=== PATIENT | female | born 1995 | race Caucasian/White ===

== ENCOUNTER → 2020-10-06 08:25 | Outpatient (BNVA) | payer BC, SELFPAY | PROVIDERS: PCP Internal Medicine; Visit Provider Surgery ==

== ENCOUNTER 2020-10-11 08:12 | Outpatient (REF) | payer BC, SELFPAY ==
--- NOTE | ~2020-10-11 | XR_ITS ---
EXAMINATION: XR CHEST CLINICAL INFORMATION: Shortness of breath COMPARISON: None TECHNIQUE: 2 views of the chest were obtained. FINDINGS: No significant abnormality is noted involving the heart, lungs, mediastinum, bony thorax or soft tissues. XR/XR chest 2V IMPRESSION: Unremarkable chest exam
--- NOTE | 2020-10-11 08:21 | ECG_ITS ---
Test Reason : SOB Blood Pressure : / mmHG Vent. Rate : 063 BPM Atrial Rate : 063 BPM P-R Int : 150 ms QRS Dur : 092 ms QT Int : 456 ms P-R-T Axes : 018 040 037 degrees QTc Int : 466 ms Normal sinus rhythm Normal ECG No previous ECGs available Referred By: Chiquis Villa Electronically Signed By:DEEPTI THAYER MD
[2020-10-11 08:30] LABS: MANUAL DIFF FLAG NO
[2020-10-11 08:40] LABS: Basophils Percent Auto 0.4 % (0-2); Eosinophils Absolute Auto 0.1 X10*3/uL (0.0-0.4); Eosinophils Percent Auto 1.4 % (0-4); Hemoglobin 12.3 g/dl (12.0-16.0); Imm Gran Abs Auto 0.03 X10*3/uL (0.00-0.03); Imm Gran Pct Auto 0.4 % (0.0-0.4); Lymphocytes Absolute Auto 2.3 X10*3/uL (1.2-4.9); Lymphocytes Percent Auto 32.2 % (20-40); Mean Corpuscular HGB Conc 32.4 g/dl (31.0-35.0); Mean Corpuscular Hemoglobin 28.5 pg (27.0-33.0); Mean Platelet Volume 10.2 fL (9.4-12.3); Monocytes Absolute Auto 0.5 X10*3/uL (0.1-1.2); Monocytes Percent Auto 6.7 % (2-11); Neutrophils Absolute Auto 4.2 X10*3/uL (2.0-8.3); Neutrophils Percent Auto 58.9 % (45-73); Platelet Count 268 X10*3/uL (160-400); Red Blood Count 4.32 X10*6/uL (4.20-5.50); Red Cell Distribution Width 12.8 % (11.0-16.0); White Blood Count 7.2 X10*3/uL (4.8-10.8)
[2020-10-11 08:48] LABS: Estimated Average Glucose 88 mg/dL; Hemoglobin A1c % 4.7 %
[2020-10-11 09:08] LABS: Alanine Aminotransferase 10 U/L (0-31); Albumin Level 4.1 g/dL (3.5-5.0); Alkaline Phosphatase 76 U/L (39-117); Anion Gap 12 (12-20); Aspartate Amino Transferase 16 U/L (5-31); Bilirubin Total 0.9 mg/dL (0.0-1.0); Blood Urea Nitrogen 18 mg/dL (9-16); C Reactive Protein 0.83 mg/dL (< or = 0.50); Calcium 9.4 mg/dL (8.4-10.2); Carbon Dioxide 26 mmol/L (22-29); Chloride 106 mmol/L (96-108); Cholesterol 160 mg/dL; Estimated Glomerular Filt Rate > 60; Glucose Fasting 84 mg/dL (60-99); HDL Cholesterol 50 mg/dL; Iron 60 mcg/dL (30-160); LDL Cholesterol Calculated 98 mg/dl; Percent Iron Saturation 18 % (15-50); Potassium 4.1 mmol/L (3.3-5.1); Sodium 140 mmol/L (135-145); Total Iron Binding Capacity 331 mcg/dL (228-428); Total Protein 7.1 g/dL (6.5-8.0); Triglycerides 64 mg/dL; Unsaturated Iron Binding 271 ug/dL
[2020-10-11 09:32] LABS: Thyroid Stimulating Hormone 3.96 uIU/mL (0.32-4.0); Vitamin D 25-OH Total 25.9 ng/mL (>30)
[2020-10-11 09:37] LABS: Vitamin B12 784 pg/mL (200-900)
[2020-10-12 18:51] LABS: Calcium (PTHI) 9.1 mg/dL (8.6-10.2); PTHI 35 pg/mL (14-64)
[2020-10-15 10:10] LABS: Vitamin B1 <6 nmol/L (8-30)
[2020-10-15 16:46] LABS: Zinc 72 mcg/dL (60-130)
[2020-10-15 19:52] LABS: Vitamin A 42 mcg/dL (38-98)
== END 2020-10-11 08:13 | disposition home or self-care (01) ==
LOC: HO.LAB 08:12
PROVIDERS: Visit Provider Surgery
DX: Z01.818 Encounter for other preprocedural examination (principal); R06.02 Shortness of breath; K91.2 Postsurgical malabsorption, not elsewhere classified; Z90.3 Acquired absence of stomach [part of]
CPT/HCPCS: 36415; 71046; 80053; 80061; 82306; 82607; 83036; 83540; 83970; 84425; 84443; 84590; 84630; 85025; 86140; 93005

== ENCOUNTER 2020-10-12 09:00 | Outpatient (REF) | payer BC, SELFPAY ==
[2020-10-13 13:26] LABS: H Pylori Breath Test NOT DETECTED (NOT DETECTED)
== END 2020-10-12 09:01 | disposition home or self-care (01) ==
LOC: HO.LNP 09:00
PROVIDERS: Surgery; PCP Internal Medicine; Visit Provider Physician Assistant
DX: Z01.818 Encounter for other preprocedural examination (principal)
CPT/HCPCS: 83013

== ENCOUNTER → 2020-10-24 08:12 | Outpatient (BNVA) | payer BC, SELFPAY | PROVIDERS: PCP Internal Medicine; Visit Provider Surgery ==

== ENCOUNTER → 2020-11-01 12:12 | Outpatient (BNVA) | payer BC, SELFPAY | PROVIDERS: PCP Internal Medicine; Visit Provider Physician Assistant ==

== ENCOUNTER → 2020-12-01 08:11 | Outpatient (BNVA) | payer BC, SELFPAY | PROVIDERS: Visit Provider Dietitian, Registered | DX: E66.01 Morbid (severe) obesity due to excess calories (principal); Z68.41 Body mass index [BMI] 40.0-44.9, adult | CPT/HCPCS: 97803 ==

== ENCOUNTER → 2020-12-06 13:52 | Outpatient (BNVA) | payer BC, SELFPAY | PROVIDERS: PCP Internal Medicine; Visit Provider Surgery ==

== ENCOUNTER → 2020-12-29 13:18 | Outpatient (BNVA) | payer BC, SELFPAY | PROVIDERS: PCP Internal Medicine; Visit Provider Surgery ==

== ENCOUNTER → 2021-01-03 08:06 | Outpatient (BNVA) | payer BC, SELFPAY | PROVIDERS: PCP Internal Medicine; Visit Provider Dietitian, Registered ==

== ENCOUNTER → 2021-01-19 13:02 | Outpatient (BNVA) | payer BC, SELFPAY | PROVIDERS: PCP Internal Medicine; Visit Provider Physician Assistant Surgical ==

== ENCOUNTER → 2021-01-31 13:23 | Outpatient (BNVA) | payer BC, SELFPAY | PROVIDERS: PCP Internal Medicine; Referring Provider Internal Medicine; Visit Provider Dietitian, Registered | DX: E55.9 Vitamin D deficiency, unspecified (principal); Z68.39 Body mass index [BMI] 39.0-39.9, adult | CPT/HCPCS: 97803 ==

== ENCOUNTER → 2021-03-01 12:49 | Outpatient (BNVA) | payer BC, SELFPAY | PROVIDERS: PCP Internal Medicine; Visit Provider Surgery ==

== ENCOUNTER 2021-03-16 08:44 | Outpatient (REF) | payer BC, SELFPAY ==
--- NOTE | ~2021-03-16 | FL_ITS ---
EXAMINATION: FL UPPER GI SERIES CLINICAL INFORMATION: Bariatric service evaluation, E66.01 COMPARISON: Chest radiographs 10/11/2020 TECHNIQUE: Upper GI series is performed using fluoroscopic evaluation in addition to multiple fluoroscopic spot views. The patient is imaged both upright and prone and using both thick and thin barium sulfate along with effervescent granules. Fluoroscopy time: 1.4 minutes DAP: 16.51 Gycm2 Fluoroscopic spot images: 18 FINDINGS: There is normal esophageal motility. There is no obstruction, stricture, ulceration, or hernia. There is mild lower thoracic gastroesophageal reflux with water siphon test. No spontaneous or significant reflux demonstrated. The stomach shows no thickened folds or ulcer crater or outlet obstruction. The duodenal bulb is pliable and without ulcer crater or scarring. The post bulbar duodenum the jejunal mucosal pattern are unremarkable. FL/FL upper GI w air IMPRESSION: 1. Mild gastroesophageal reflux into lower thoracic esophagus limited to water siphon test. No spontaneous or significant reflux. 2. No ulceration or scarring. No hiatal hernia.
--- NOTE | ~2021-03-16 | US_ITS ---
EXAMINATION: US COMPLETE ABDOMEN WITH LIVER ELASTOGRAPHY CLINICAL INFORMATION: Bariatric service evaluation, E 66.01 COMPARISON: None. TECHNIQUE: Real-time imaging of the abdominal viscera. Noninvasive ultrasound liver fibrosis assessment is performed using John ElastPQ point quantification shear wave elastography (pSWE) with a C5-2 MHz transducer. Multiple elastography samples are obtained. FINDINGS: PANCREAS: The visualized pancreas is normal in size and contour and echogenicity. There is no pancreatic ductal distention. Pancreatic tail is obscured by bowel gas and not completely imaged. ABDOMINAL AORTA: The proximal, middle, and distal aortic segments are normal in caliber. INFERIOR VENA CAVA: Visualized portions are normal. LIVER: The liver is normal in size and smooth in contour. Hepatic parenchymal echogenicity is within normal. No focal hepatic parenchymal lesion or intrahepatic ductal dilatation. The right lobe measures 15.5 cm in length. The left lobe measures 12.1 cm in length. Portal flow is towards the liver (hepatopetal). Shear wave liver elastography median stiffness is 1.51 m/s (reference: normal median stiffness is 1.3 m/s or less). IQR/median stiffness to assess sampling precision is 0.09 (reference: good quality data set is IQR/median stiffness of 0.15 or less). GALLBLADDER: Normal. The gallbladder is physiologically distended without evidence of stones, sludge, polyps, wall thickening or pericholecystic fluid. COMMON BILE DUCT: Normal in caliber measuring 0.3 cm in diameter. RIGHT KIDNEY: Normal. No hydronephrosis. No renal calculi or focal parenchymal lesions. The kidney measures 12.2 cm in maximum dimension. LEFT KIDNEY: Normal. No hydronephrosis. No renal calculi or focal parenchymal lesions. The kidney measures 12.6 cm in maximum dimension. SPLEEN: The spleen is borderline enlarged measuring 13 cm in length. Parenchyma is homogeneous. FREE FLUID: None. US/US abdomen comp w elastography IMPRESSION: 1. Liver normal in size and echogenicity. Spleen borderline enlarged, 13 cm. No ascites. 2. Liver elastography: In the absence of other known clinical signs, measurements rule out compensated advanced chronic liver disease. If there are known clinical signs, further testing may be needed for confirmation. 3. No cholelithiasis or ductal dilatation. REFERENCE: Society of Radiologists in Ultrasound Liver Stiffness Thresholds (2020): LIVER STIFFNESS THRESHOLDS: *Liver Stiffness equal or less than 1.3 m/s: High probability of being normal. *Liver Stiffness less than 1.7 m/s: In the absence of other known clinical signs, rules out compensated advanced chronic liver disease. *Liver Stiffness 1.7-2.1 m/s: Suggestive of compensated advanced chronic liver disease but need further test for confirmation. *Liver Stiffness over 2.1 m/s: Rules in compensated advanced chronic liver disease. *Liver Stiffness over 2.4 m/s: Suggestive of clinically significant portal hypertension. QUALITY OF DATA SET: *IQR/Median value equal or less than 0.15 implies a quality data set. *IQR/Median value over 0.15 implies a poor quality data set. SIGNIFICANT CHANGE FROM PRIOR EXAM: Significant change if liver stiffness measurement is 10% or greater from prior exam. OTHER CONSIDERATIONS: The stage of liver fibrosis may be overestimated in the setting of acute hepatitis, liver inflammation, elevated liver function tests, hepatic vascular congestion, obstructive cholestasis, non-fasting state, and infiltrative diseases such as amyloidosis and lymphoma. In some patients with NAFLD, the liver stiffness thresholds for compensated advanced chronic liver disease may be lower. In causes other than viral hepatitis and NAFLD, liver stiffness thresholds are not well established.
== END 2021-03-16 08:45 | disposition home or self-care (01) ==
LOC: HO.US 08:44
PROVIDERS: PCP Internal Medicine; Visit Provider Surgery
DX: E66.01 Morbid (severe) obesity due to excess calories (principal); Z68.41 Body mass index [BMI] 40.0-44.9, adult
CPT/HCPCS: 74246; 76705; 76981

== ENCOUNTER → 2021-03-21 07:35 | Outpatient (BNVA) | payer BC, SELFPAY | PROVIDERS: PCP Internal Medicine; Visit Provider Surgery ==

== ENCOUNTER 2021-03-30 06:03 | Inpatient (IN) | payer BC, SELFPAY ==
[2021-03-22 09:53] LABS: MANUAL DIFF FLAG NO
[2021-03-22 10:20] VITALS: BMI 38.0
[2021-03-22 10:34] LABS: Basophils Percent Auto 0.3 % (0-2); Eosinophils Absolute Auto 0.3 X10*3/uL (0.0-0.4); Eosinophils Percent Auto 4.8 % (0-4); Hematocrit 39.8 % (37.0-47.0); Hemoglobin 12.8 g/dl (12.0-16.0); Imm Gran Abs Auto 0.03 X10*3/uL (0.00-0.03); Imm Gran Pct Auto 0.5 % (0.0-0.4); Lymphocytes Absolute Auto 1.9 X10*3/uL (1.2-4.9); Lymphocytes Percent Auto 31.8 % (20-40); Mean Corpuscular HGB Conc 32.2 g/dl (31.0-35.0); Mean Corpuscular Hemoglobin 29.5 pg (27.0-33.0); Mean Corpuscular Volume 91.7 fL (80.0-98.0); Mean Platelet Volume 10.8 fL (9.4-12.3); Monocytes Absolute Auto 0.4 X10*3/uL (0.1-1.2); Monocytes Percent Auto 6.5 % (2-11); Neutrophils Absolute Auto 3.4 x10*3/uL (2.0-8.3); Neutrophils Percent Auto 56.1 % (45-73); Platelet Count 229 X10*3/uL (160-400); Red Blood Count 4.34 X10*6/uL (4.20-5.50); Red Cell Distribution Width 12.8 % (11.0-16.0)
[2021-03-22 10:41] LABS: Estimated Average Glucose 91 mg/dL; Hemoglobin A1c % 4.8 %; Prothrombin Time 11.2 SEC (9.9-13.0)
[2021-03-22 10:42] LABS: Alanine Aminotransferase 16 U/L (0-31); Albumin Level 3.7 g/dL (3.5-5.0); Alkaline Phosphatase 65 U/L (39-117); Anion Gap 8 (12-20); Aspartate Amino Transferase 14 U/L (5-31); Bilirubin Total 0.6 mg/dL (0.0-1.0); Blood Urea Nitrogen 12 mg/dL (9-16); C Reactive Protein 0.29 mg/dL (< or = 0.50); Calcium 9.1 mg/dL (8.4-10.2); Carbon Dioxide 30 mmol/L (22-29); Chloride 107 mmol/L (96-108); Cholesterol 142 mg/dL; Creatinine Clr Calc Pharmacy 160.3; Estimated Glomerular Filt Rate > 60; Glucose Random 87 mg/dL (60-115); HDL Cholesterol 54 mg/dL; LDL Cholesterol Calculated 81 mg/dl; Potassium 4.8 mmol/L (3.3-5.1); Sodium 140 mmol/L (135-145); Total Protein 6.5 g/dL (6.5-8.0); Triglycerides 37 mg/dL
[2021-03-22 10:44] LABS: Partial Thromboplastin Time 32.1 SEC (24.1-38.0)
[2021-03-22 11:05] LABS: Insulin 11 uU/mL (2-29); TSH reflex Free T4 2.06 uIU/mL (0.32-4.0)
[2021-03-22 11:06] LABS: Vitamin D 25-OH Total 14.6 ng/mL (>30)
--- NOTE | 2021-03-25 21:13 | P.HPSUR_ITS ---
Pre-Procedural Eval Section A Date of Service: 03/25/21 The patient is an INPATIENT: Yes The History & Physical has been completed within 30 days and I have reviewed it.: Yes Section B Chief Complaint: obesity Relevant Family History (Specify if Yes): No Relevant Social History: None Present Medications: None Medical History: No relevant PMH History of Previous Operations: No relevant previous surgery Allergies: Allergies Allergy/AdvReac Type Severity Reaction Status Date / Time cephalexin [From Keflex] Allergy Intermediate Angioedema Verified 03/22/21 10:28 Penicillins Allergy Intermediate Angioedema Verified 03/22/21 10:28 Review of Systems Sugical H&P ROS: Negative: Constitution, Cardiovascular, Respiratory, Neurological, Psychiatric, Hem-Onc, Allergic/Immunologic, Gastrointestinal, Genitourinary, Musculoskeletal, Integumentary, Endocrine and Eyes/Ears/Nose/Throat Exam Surgical H&P Exam: Normal: HEENT, Normal: Heart, Normal: Lungs, Normal: Extrem ities, Normal: Abdomen, Normal: Skin and Normal: Neurological Plan Diagnosis/Plan: Unchanged I have reviewed the history and physical and performed a pertinent physical examination on my patient. No changes have occurred unless specified.
[2021-03-28 15:56] LABS: Vitamin B1 24 nmol/L (8-30)
--- NOTE | 2021-03-29 12:50 | P.CONAN_ITS ---
Documented by User: Yasmine Moran NP 03/29/21 12:55 HPI - Anesthesia Eval Consult details Narrative: 25yo F for Gastrectomy Sleeve,EGD,poss diaphragmatic hernia,poss ventral hernia,poss open PMFSH Active Problems Active Problems: All Active Problems (Updated 03/27/21 @ 10:32 by Elinor Kunz PA-C) Pre-op evaluation (Acute) Preoperative examination (Acute) Shortness of breath (Acute) BMI 40.0-44.9, adult (Acute) Morbid obesity due to excess calories (Acute) Adjustment disorder, unspecified (Acute) Vitamin B1 deficiency (Acute) Vitamin D insufficiency (Acute) Morbid obesity with BMI of 40.0-44.9, adult (Acute) BMI 38.0-38.9,adult (Acute) Obesity (Acute) Past Medical History Medical History (Updated 03/27/21 @ 10:32 by Elinor Kunz PA-C) Arthritis Back pain COVID-19 vaccine series completed History of anesthesia reaction Obesity Polycystic ovarian syndrome Reactive airway disease Family History Family History Mother Endometriosis Hypertension Hyperlipidemia Father Hypertension Sister PCOS (polycystic ovarian syndrome) Brother Mental health problem Surgical History Surgical History (Updated 03/30/21 @ 06:15 by Vandana Watts RN) History of esophagogastroduodenoscopy (EGD) Hx of shoulder surgery Hx of tonsillectomy Social History Social History Are you a primary field care coordinator to a significant other at home: Yes (children) Do you presently have visiting nurse or other home services: No Alcohol intake: current Alcohol intake frequency: a few times a week Alcohol type: wine Patient Tobacco Use Status: Current someday Tobacco user Tobacco use type: Cigarette Cigarettes Per Day: 4 Years Smoked: 10 Use of substances other than those prescribed or required for medical reasons: No Have you been hit, kicked, punched, or otherwise hurt by someone within the past year? If so, by whom?: No Are you DNR?: No Advance Directives: No Advance Directives Information Provided: No (patient declined informational brochure) Advance Directives on File: No Recently lost weight without trying: No Eating poorly because of decreased appetite: No Nutrition Risks: No Nutritional Risk Patient : No FDLMP: 03/13/21 : No Poor oral hygiene: No (has upper permanent bridge-front 4 teeth) Meds Allergies Allergy/AdvReac Type Severity Reaction Status Date / Time cephalexin [From Keflex] Allergy Intermediate Angioedema Verified 03/22/21 10:28 Penicillins Allergy Intermediate Angioedema Verified 03/22/21 10:28 Home Medications Medication Instructions Recorded Confirmed Last Taken Type albuterol sulfate 90 mcg/actuation 1 inh INHALATION QID PRN 03/22/21 03/22/21 Unknown History aerosol inhaler (Ventolin HFA) Exam Exam Date and Time: March 29, 2021 1250 Pertinent Lab Results Pertinent Lab Results: Laboratory Tests 03/22/21 03/22/21 09:46 09:46 WBC 6.0 Hgb 12.8 Hct 39.8 Plt Count 229 Sodium 140 Potassium 4.8 Chloride 107 Carbon Dioxide 30 H BUN 12 Creatinine 0.72 Narrative Narrative: EKG 09/2020 Vent. Rate : 063 BPM ? ? Atrial Rate : 063 BPM ?? P-R Int : 150 ms? QRS Dur : 092 ms ? ? QT Int : 456 ms ? ? ? P-R-T Axes : 018 040 037 degrees ?? QTc Int : 466 ms ? Normal sinus rhythm Normal ECG No previous ECGs available Assessment and Plan Assessment Anesthesia Assessment: Chart Reviewed Documented by User: Rl Lomas MD 03/30/21 09:30 [facility] Past Medical History Medical History (Updated 03/27/21 @ 10:32 by Elinor Kunz PA-C) Arthritis Back pain COVID-19 vaccine series completed History of anesthesia reaction Obesity Polycystic ovarian syndrome Reactive airway disease Family History Family History Mother Endometriosis Hypertension Hyperlipidemia Father Hypertension Sister PCOS (polycystic ovarian syndrome) Brother Mental health problem Family history of problems with anesthesia: No Surgical History Surgical History (Updated 03/30/21 @ 06:15 by Vandana Watts RN) History of esophagogastroduodenoscopy (EGD) Hx of shoulder surgery Hx of tonsillectomy History of Problems with Anesthesia: No Social History Social History Are you a primary field care coordinator to a significant other at home: Yes (children) Do you presently have visiting nurse or other home services: No Alcohol intake: current Alcohol intake frequency: a few times a week Alcohol type: wine Patient Tobacco Use Status: Current someday Tobacco user Tobacco use type: Cigarette Cigarettes Per Day: 4 Years Smoked: 10 Use of substances other than those prescribed or required for medical reasons: No Have you been hit, kicked, punched, or otherwise hurt by someone within the past year? If so, by whom?: No Are you DNR?: No Advance Directives: No Advance Directives Information Provided: No (patient declined informational brochure) Advance Directives on File: No Recently lost weight without trying: No Eating poorly because of decreased appetite: No Nutrition Risks: No Nutritional Risk Patient : No FDLMP: 03/13/21 : No Poor oral hygiene: No (has upper permanent bridge-front 4 teeth) Meds Allergies Allergy/AdvReac Type Severity Reaction Status Date / Time cephalexin [From Keflex] Allergy Intermediate Angioedema Verified 03/22/21 10:28 Penicillins Allergy Intermediate Angioedema Verified 03/22/21 10:28 Home Medications Medication Instructions Recorded Confirmed Last Taken Type albuterol sulfate 90 mcg/actuation 1 inh INHALATION QID PRN 03/22/21 03/22/21 Unknown History aerosol inhaler (Ventolin HFA) Exam Airway Mallampati Class: III TM Dist: >3cm Neck ROM: Full Loose/Missing/Broken Teeth: No Heart: rrr +s1s2 Lungs: cta b/l Assessment and Plan Assessment Anesthesia Assessment: Anesthesia Plan Discussed Final Anesthetic Review Family History of Problems with Anesthesia: No History of Problems with Anesthesia: No NPO: Yes ASA Class: II Final Preanesthetic Review: No Changes in Pt Med Stat, Meds/Allgs Chart Reviewed, Consent Obtained/Reviewed and Anes Risks/Benef Reviewed Patient Risk: Intermediate Procedure Risk: Intermediate Assessment/Block/Sedation in SS: Assess/Block/Sedation- Anesthetic Plan Anesthetic Plan: GA and Agree w/ Assess. and Plan Disposition: Standard PACU
[2021-03-29 14:15] LABS: COVID-19 Test Negative (Negative)
[2021-03-30] VITALS (16 sets, daily range): BP systolic 120–157; BP diastolic 62–98; PULSE 74–92; RESP 14–20; TEMP 36.1–36.8; O2SAT 95–100; BMI 37.3
[2021-03-30 06:35] LABS: UPreg QC Valid YES
[2021-03-30 06:39] LABS: Urine Pregnancy NEGATIVE (NEGATIVE)
[2021-03-30] MEDS: Lactated Ringers 1,000 ML 999 ML IV (07:20)
[2021-03-30] MEDS: Lactated Ringers 1,000 ML 100 ML IVCONT ×2 (07:20→21:54)
--- NOTE | 2021-03-30 10:03 | PM.DS ---
DS: Providers Provider Date of admission: 03/30/21 06:03 Primary care physician: Marty Catalan MD DS: Summary Hospital Course Hospital Course: ADMITTING DIAGNOSIS: morbid obesity, PCOS DISCHARGE DIAGNOSIS: same, s/p laparoscopic sleeve gastrectomy PAST SURGICAL HISTORY: shoulder surgery PROCEDURE: upper endoscopy, laparoscopic sleeve gastrectomy DISCHARGE SUMMARY: History of Present Illness: The patient is a 25 year-old woman with a BMI of 42.2 kg/m2 and associated co-morbidities as described above. The patient had extensive work-up,lost 27 lbs preoperatively and was electively scheduled for laparoscopic, possible open sleeve gastrectomy and gastropexy. Risks and complications of the surgery were discussed with the patient in advance, particularly the possibility of , pulmonary embolism, anastomotic leak, bleeding, bowel injury, GERD, cardiac, renal or pulmonary complications. The patient understood all the risks and was in agreement with the surgical plan. Hospital Course: The patient underwent an uneventful laparoscopic sleeve gastrectomy with gastropexy on the day of admission. Postoperatively, the patient was transferred to the surgical floor. The patient received IV Acetaminophen and IV dilaudid for pain control. Patient was started on bariatric phase 1 diet POD #0. On postoperative day one, the patient was feeling well without nausea, vomiting, fevers, or tachycardia. The patient had some mild incisional pain and the abdomen was soft. On the morning of postoperative day one, the patient was continued on 1 ounce of water or ice every half hour. During the day, the patient did fairly well, having some incisional pain, but able to ambulate adequately and to tolerate liquids well. Since the patient is doing well, we decided that the patient was ready to be discharged. The patient was given instructions to follow-up with me next week and to call my office for any fever over 101, persistent abdominal pain, nausea, vomiting, GERD, symptoms of DVT such as calf tenderness, or leg swelling, or pulmonary embolism such as chest pain or shortness of breath. The patient was also instructed to drink 40-60 ounces of liquids per day using the 1-ounce cups. The patient had been given prescriptions for Tylenol for pain, Zofran prn for nausea, and pantoprazole and carafate previously. The patient was encouraged to ambulate and use the incentive spirometer. The patient was allowed to shower, but no baths, and encouraged to stay active at home. All of these instructions were given to the patient personally. All questions were answered and the patient understood all instructions, the instructions were also given to the patient in print. Time Spent with Patient Time attestation: Total time spent providing and/or coordinating discharge services: Physical Exam Vital Signs: Vital Signs: BMI result Body Mass Index 38.0 DS: Data Data Completed and Pending Labs on day of discharge: Laboratory Results - last 24 hr 03/22/21 09:46 Blood Type Cancelled Antibody Screen Cancelled Discharge Plan Discharge Anticipated Discharge Date/Time: 03/31/21 10:00 Patient Disposition: Home, Self-Care Discharge Diagnosis: s/p sleeve gastrectomy Referrals: Marty Catalan MD [Primary Care Provider] - 1 Week Discharge Medications: Continued albuterol sulfate [Ventolin HFA] 90 mcg/actuation Hfa Aerosol Inhaler 1 inh INHALATION QID PRN (Reason: Wheezing) RF: 0 pantoprazole 40 mg tablet,delayed release (DR/EC) 40 mg PO DAILY Qty: 30 RF: 2 sucralfate 100 mg/mL suspension 10 ml PO BID Qty: 400 RF: 2 ondansetron HCl [Zofran] 4 mg tablet 4 mg PO Q12H Qty: 20 RF: 0 Discontinued polyethylene glycol 3350 [Miralax] 17 gram powder in packet 17 g PO DAILY Qty: 14 RF: 0 Diet: other Activity on Discharge: No heavy lifting Stand Alone Forms: Patient Portal Discharge page Care Plan Goals: weight loss Health Concerns: morbid obesity Plan of Treatment: No tub baths, sex or returning to work until discussed at first post op appointment. No exercise, alcohol, tobacco or illegal drug use. Continue to use incentive spirometer hourly while awake. Walk in home for 5- 10 minutes every 2 hours during the first week. Continue phase 1 diet today and start phase 2 diet tomorrow morning. Follow all instructions in the bariatric handbook and call with any questions. 1. Please call your doctor or come back to the emergency room should any new symptoms arise. 2. You will receive a courtesy call from [facility] 24-48 hours after discharge. 3. Activity: abstain from alcohol, practice limited stair climbing, no bending, no driving, no exercise, no illicit substances, no lifting, no sex, no tub bath, no work. 4. Diet: continue as discussed with Dr. Casanova. 5. Dressing Change/Wound Care: Do not change or remove surgical dressings unless they are wet or soiled. 6. Call your doctor if: - Your temperature exceeds 101.5 F - You experience excessive pain or swelling - You have an unexpected reaction to medication - You have excessive bleeding - You experience continued vomiting/nausea - Your incision begins to separate - Your incision shows signs of infection such as increased redness, swelling, excessive pain, heat, or drainage (light blood or clear fluid is normal) 7. General instructions: No lifting greater than 5 lbs for the next 4 weeks[address] driving within 24 hours of taking narcotic pain medications. If you do not move your bowels in the next 2 days, please take milk of magnesia over the counter. Please follow the post op diet and do not advance your diet until you are seen in the office in about 2 weeks. Please walk around your home every hour or two to prevent blood clots from forming in your legs. You do not need to wake from sleeping to walk. Please sleep in a bed or couch to prevent kinking at the hips and knees. Please take your incentive spirometer (your lung ballpoint pen assembly machine operator) home with you and use it for the next few days to prevent pneumonias. You may shower, no hot tubs, baths or swimming pools. Please call the office with any questions or concerns such as increasing abdominal pain, fever, chills, shortness of breath, chest pain, leg pain or swelling, or redness or drainage from your incisions. Do not hesitate to contact the office with any questions at . The patient's medical history has been reviewed and they are considered low risk for post op DVT and therefore DVT prophylaxis is not considered necessary. Travel after surgery was reviewed. The patient has not disclosed any travel plans during the first 30 days after surgery and they have been advised that within the first 30 days after surgery any bus, plane, train or car travel over 2 hours in duration is contraindicated due to the possibility of developing blood clots from immobility. Any travel, needs to include periods of ambulation of 10 minutes in duration every 2 hours. The patient was instructed to discuss any plans for travel during this period with their bariatric surgeon. Assessment: stable, post op sleeve gastrectomy
[2021-03-30] MEDS: diphenhydrAMINE HCL 50 MG/ML VIAL 25 MG IVPUSH (10:20)
--- NOTE | 2021-03-30 10:55 | PC.NURSE ---
1047 03/30 Zee Aleman: Medicated for Nausea (Note documented on correct acct per Damon Ann by Debbie Mejía incorrect acct was [id number])
--- NOTE | 2021-03-30 10:55 | PC.NURSE ---
1047 MEDICATED FOR NAUSEA
--- NOTE | 2021-03-30 11:36 | PC.NURSE ---
03/30 1136 Zee Aleman RN: [id number] KD Garcia again notified post op orders unable to be viewed in [facility]. Damon Estrada, Director OR, also made aware no post op orders. [id number] KD Garcia again made aware of no orders present on this patient for post op. Additional ROCK SPLITTER looking for orders. Elinor indicated need to contact IT as she has placed orders. Damon Estrada again updated no post op orders in place for this patient. Working with IT to investigate account issue. (Note has been added by Debbie Mejía per approval from Damon as it was previously entered on incorrect acct [id number])
--- NOTE | 2021-03-30 11:36 | PC.NURSE ---
03/30 1055 Zee Aleman: Call to lab to request stat lab draws (Note documented on correct acct per Damon Ann by Debbie Mejía incorrect acct was [id number]
--- NOTE | 2021-03-30 11:36 | PC.NURSE ---
CALL TO LAB TO REQUEST STAT LAB DRAWS
--- NOTE | 2021-03-30 11:36 | PC.NURSE ---
1052 KD ANNE, AGAIN NOTIFIED POST OP ORDERS UNABLE TO BE VIEWED IN [facility]. MICHAEL YANG, DIRECTOR OR, ALSO MADE AWARE NO POST OP ORDERS. 1100 KD ANNE, AGAIN MADE AWARE NO ORDERS PRESENT ON THIS PATIENT FOR POST OP. ADDITIONAL PACU, RN, LOOKING FOR ORDERS. TRINIDAD INDICATED NEED TO CONTACT IT SHE HAS PLACED ORDERS. MICHAEL YANG AGAIN UPDATED NO POST OP ORDERS IN PLACE FOR THIS PATIENT. WORKING WITH IT TO INVESTIGATE ACCOUNT ISSUE
--- NOTE | 2021-03-30 11:49 | PC.NURSE ---
Addendum entered by Loly Mejía 04/03/21 12:44: Note originally documented on acct [id number] by Zee Aleman RN, Damon Estrada granted Debbie Mejía permission to move to correct account. Original Note: 1149 03/30 Zee Aleman RN: [id number] Phlebotomy contacted again to request stat labs to be drawn Dr Lomas made aware of residual nausea and unable to access inpatient orders placed by KD Garcia.
--- NOTE | 2021-03-30 11:49 | PC.NURSE ---
1149 PHLEBOTOMY CONTACTED AGAIN TO REQUEST STAT LABS BE DRAWN DR. KELLEY MADE AWARE OF RESIDUAL NAUSEA AND UNABLE TO ACCESS INPATIENT ORDERS PLACED BY KD ANNE.
[2021-03-30 12:05] LABS: Hematocrit 38.8 % (37.0-47.0); Hemoglobin 12.8 g/dl (12.0-16.0)
[2021-03-30 12:28] LABS: Anion Gap 10 (12-20); Blood Urea Nitrogen 9 mg/dL (9-16); Calcium 8.9 mg/dL (8.4-10.2); Carbon Dioxide 25 mmol/L (22-29); Chloride 105 mmol/L (96-108); Creatinine Clr Calc Pharmacy 162.5; Estimated Glomerular Filt Rate > 60; Glucose Random 122 mg/dL (60-115); Potassium 4.2 mmol/L (3.3-5.1); Sodium 136 mmol/L (135-145)
[2021-03-30] MEDS: ondansetron HCL 4 MG/2 ML VIAL IVPUSH (13:05)
--- NOTE | 2021-03-30 15:25 | PC.NURSE ---
03/30 1524 Noted by Zee Aleman RN: KD ANNE, CALLED TO GET AN UPDATE ON PATIENT STATUS. PA MADE AWARE ONGOING NAUSEA CONTROL ISSUES. REVIEWED ANTIEMETICS GIVEN TO PATIENT IN PACU THUS FAR. DIET NOT PROGRESSSED TO PHASE 1 AT THIS TIME RELATED TO NAUSEA. PATIENT WITH PAIN CONTROL ISSUES EPIGASTRIC PAIN. PATIENT HAS NOT HAD NARCOTICS IS REFUSING AND RELATED TO NAUSEA CONCERN WITH GIVING TO PATIENT TO INCREASE NAUSEA. PA AWARE OF ACCOUNT ISSUES WITH POST OP ORDERS PLACED IN SEPARATE ACCOUNT. IVF AND IV TYLENOL INFUSION INITIATED ORDERED LR 100 ML/HR AND TYLENOL IV GTT AT 16.67 ML/HR ORDERED. (Note was added to correct account by Debbie Mejía Per Damon Estrada as original was on incorrect account [id number])
--- NOTE | 2021-03-30 16:13 | P.DS_ITS ---
DS: Providers Provider Date of Service: 03/31/21 Primary care physician: Marty Catalan MD DS: Summary Hospital Course Hospital Course: ADMITTING DIAGNOSIS: morbid obesity, PCOS DISCHARGE DIAGNOSIS: same, s/p laparoscopic sleeve gastrectomy PAST SURGICAL HISTORY: shoulder surgery PROCEDURE: upper endoscopy, laparoscopic sleeve gastrectomy DISCHARGE SUMMARY: History of Present Illness: The patient is a 25 year-old woman with a BMI of 42.2kg/m2 and associated co- morbidities as described above. The patient had extensive work-up,lost 27 lbs preoperatively and was electively scheduled for laparoscopic, possible open sleeve gastrectomy and gastropexy. Risks and complications of the surgery were discussed with the patient in advance, particularly the possibility of , pulmonary embolism, anastomotic leak, bleeding, bowel injury, GERD, cardiac, renal or pulmonary complications. The patient understood all the risks and was in agreement with the surgical plan. Hospital Course: The patient underwent an uneventful laparoscopic sleeve gastrectomy with gastropexy on the day of admission. Postoperatively, the patient was transferred to the surgical floor. The patient received IV Acetaminophen and IV dilaudid for pain control. Patient was started on bariatric phase 1 diet POD #0. On postoperative day one, the patient was feeling well without nausea, vomiting, fevers, or tachycardia. The patient had some mild incisional pain and the abdomen was soft. On the morning of postoperative day one, the patient was continued on 1 ounce of water or ice every half hour. During the day, the patient did fairly well, having some incisional pain, but able to ambulate adequately and to tolerate liquids well. Since the patient is doing well, we decided that the patient was ready to be discharged. The patient was given instructions to follow-up with me next week and to call my office for any fever over 101, persistent abdominal pain, nausea, vomiting, GERD, symptoms of DVT such as calf tenderness, or leg swelling, or pulmonary embolism such as chest pain or shortness of breath. The patient was also instructed to drink 40-60 ounces of liquids per day using the 1-ounce cups. The patient had been given prescriptions for Tylenol for pain, Zofran prn for nausea, and pantoprazole and carafate previously. The patient was encouraged to ambulate and use the incentive spirometer. The patient was allowed to shower, but no baths, and encouraged to stay active at home. All of these instructions were given to the patient personally. All questions were answered and the patient understood all instructions, the instructions were also given to the patient in print. Time Spent with Patient Time attestation: Total time spent providing and/or coordinating discharge services: Discharge coordination time: Less than 30 minutes Quality: Stroke Does the patient have a stroke diagnosis?: No Physical Exam Vital Signs: Vital Signs: Last Vital Signs Temp 97.8 F 03/30/21 10:00 Pulse 86 03/30/21 15:30 Resp 20 03/30/21 15:30 BP 126/77 03/30/21 15:30 Pulse Ox 97 03/30/21 15:30 BMI result Body Mass Index 37.3 DS: Data Data Completed and Pending Pending studies at discharge: Pending at discharge 03/30/21 09:08 Surgical [PTH] Routine Labs on day of discharge: Laboratory Results - last 24 hr 03/22/21 03/30/21 09:46 06:10 Urine Test NEGATIVE Blood Type A Negative Antibody Screen NEGATIVE Discharge Plan Discharge Anticipated Discharge Date/Time: 03/31/21 10:08 Patient Disposition: Home, Self-Care Discharge Diagnosis: s/p sleeve gastrectomy Referrals: Marty Catalan MD [Primary Care Provider] - 1 Week Discharge Medications: Continued albuterol sulfate [Ventolin HFA] 90 mcg/actuation Hfa Aerosol Inhaler 1 inh INHALATION QID PRN (Reason: Wheezing) RF: 0 pantoprazole 40 mg tablet,delayed release (DR/EC) 40 mg PO DAILY Qty: 30 RF: 2 ondansetron HCl [Zofran] 4 mg tablet 4 mg PO Q12H Qty: 20 RF: 0 Discontinued sucralfate 100 mg/mL suspension 10 ml PO BID Qty: 400 RF: 2 Diet: other Activity on Discharge: No heavy lifting Stand Alone Forms: Patient Portal Discharge page Care Plan Goals: weight loss Health Concerns: morbid obesity Plan of Treatment: No tub baths, sex or returning to work until discussed at first post op appointment. No exercise, alcohol, tobacco or illegal drug use. Continue to use incentive spirometer hourly while awake. Walk in home for 5- 10 minutes every 2 hours during the first week. Continue phase 1 diet today and start phase 2 diet tomorrow morning. Follow all instructions in the bariatric handbook and call with any questions. 1. Please call your doctor or come back to the emergency room should any new symptoms arise. 2. You will receive a courtesy call from [facility] 24-48 hours after discharge. 3. Activity: abstain from alcohol, practice limited stair climbing, no bending, no driving, no exercise, no illicit substances, no lifting, no sex, no tub bath, no work. 4. Diet: continue as discussed with Dr. Casanova. 5. Dressing Change/Wound Care: Do not change or remove surgical dressings unless they are wet or soiled. 6. Call your doctor if: - Your temperature exceeds 101.5 F - You experience excessive pain or swelling - You have an unexpected reaction to medication - You have excessive bleeding - You experience continued vomiting/nausea - Your incision begins to separate - Your incision shows signs of infection such as increased redness, swelling, excessive pain, heat, or drainage (light blood or clear fluid is normal) 7. General instructions: No lifting greater than 5 lbs for the next 4 weeks[address] driving within 24 hours of taking narcotic pain medications. If you do not move your bowels in the next 2 days, please take milk of magnesia over the counter. Please follow the post op diet and do not advance your diet until you are seen in the office in about 2 weeks. Please walk around your home every hour or two to prevent blood clots from forming in your legs. You do not need to wake from sleeping to walk. Please sleep in a bed or couch to prevent kinking at the hips and knees. Please take your incentive spirometer (your lung radio communications mechanician) home with you and use it for the next few days to prevent pneumonias. You may shower, no hot tubs, baths or swimming pools. Please call the office with any questions or concerns such as increasing abdominal pain, fever, chills, shortness of breath, chest pain, leg pain or swelling, or redness or drainage from your incisions. Do not hesitate to contact the office with any questions at . The patient's medical history has been reviewed and they are considered low risk for post op DVT and therefore DVT prophylaxis is not considered necessary. Travel after surgery was reviewed. The patient has not disclosed any travel plans during the first 30 days after surgery and they have been advised that within the first 30 days after surgery any bus, plane, train or car travel over 2 hours in duration is contraindicated due to the possibility of developing blood clots from immobility. Any travel, needs to include periods of ambulation of 10 minutes in duration every 2 hours. The patient was instructed to discuss any plans for travel during this period with their bariatric surgeon. Assessment: stable, p ost op sleeve gastrectomy
--- NOTE | 2021-03-30 17:15 | P.BOP_ITS ---
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 The program is a phased program with a special focus on preoperative medical weight management to promote substantial weight loss and prepare the patients for the second phase of the program: bariatric surgery. The patient participated in an intensive weekly lifestyle ?intervention and exercise program during which the patient ?has lost between the initial office visit and the last preoperative visit 27 lbs, or 9.45% of initial actual body weight. It was deemed appropriate for the patient to now have bariatric surgery. In light of the current Covid-19 pandemic and the well documented strong association of obesity and increased risk of worse outcomes if infected with Covid-19 (REFERENCES: https://pubmed.ncbi.nlm.nih.gov/82647814/ ,? https://pubmed.ncbi.nlm.nih.gov/12040966/ ), any delay in undergoing bariatric surgery may lead to the patient's worsening health condition and increased?risk of more severe Covid-19 disease if infected. In addition a recent?study from [facility] published in [employer] on 03/20/2021 ([email or web address]) found that, among patients with obesity, substantial weight loss achieved with surgery was associated with improved outcomes of COVID-19 infection. The findings suggest that obesity can be a modifiable risk factor for the severity of COVID-19 infection. In addition, the patient met the BMI-criteria for bariatric surgery based on the BMI on initial presentation. The patient should not be penalized for achieving such weight loss because ?it is not sustainable long-term without surgical intervention and it was achieved in preparation for bariatric surgery ?under my direction and based on my published research ([email or web address]).[email or web address] and? https://www.soard.org/article/[email or web address](66)02827-X/pdf ) ?that a 10% preopera tive weight loss improves long-term weight loss after surgery and reduces perioperative complications.? Insurance carriers such as [facility] have endorsed my recommendations ?and have included in their policies criteria to include a 10% preoperative weight loss requirement. PROCEDURE: Esophago-gastroscopy, laparoscopic lysis of adhesions, laparoscopic sleeve gastrectomy and laparoscopic gastropexy INDICATIONS: This is a 25 year-old female who was electively scheduled for laparoscopic, possibly open sleeve gastrectomy. The risks and complications of the procedure were discussed with the patient in advance, particularly the possibility of ; pulmonary embolism; staple line leak; bleeding; GERD; cardiac, pulmonary, or renal complications; as well as long-term problems such as insufficient weight loss, vitamin deficiency, strictures, or ulcers. The patient understood all the risks, and was in agreement to proceed with surgery. DESCRIPTION OF PROCEDURE: After informed consent was obtained from the patient, the patient was given preoperative antibiotics, and was transferred to the operating room. After successful induction of general anesthesia, pneumatic compression devices were placed on both lower extremities. An upper endoscopy was performed next. The oropharynx and esophagus appeared to be within normal limits. There was no diaphragmatic hernia present consistent with the findings of the preoperative upper GI. The stomach was entered. Then after all fluid and air were suctioned and the stomach was fully decompressed, the scope was withdrawn and secured in the mid esophagus. The patient was then prepped and draped in the usual sterile manner, and abdominal access was established at the right upper quadrant with the Luis Armando technique. A 12 mm blunt port was inserted, and the abdomen was insufflated with CO2 to a pressure of 15 mmHg. Under direct visualization, additional ports were placed, specifically two 5 mm Versi-step ports to the left upper quadrant, and a 5 mm Versi-Step port to the right upper quadrant. 1% lidocaine plain was used to infiltrate all port sites as well as all fascia defects. Using the EndoClose suture passer device, I placed a #1 Polysorb tie across the falciform ligament in order to retract it up against the abdominal wall and prevent injury of the ligament with our instruments during the procedure. Following that, the patient was placed in a steep reverse Trendelenburg position. An additional 5 mm port was placed to the right flank for the Mediflex retractor that was used to retract the left lobe of the liver. The gastro-esophageal fat pad was opened with the ultrasonic device (Thunderbeat, Olympus) and the anterior esophagus and hiatus were exposed. The angle of His was opened with the ultrasonic device the fundus of the stomach from any diaphragmatic and splenic attachments. I then opened the gastrocolic ligament between the transverse colon and the greater curvature of the stomach with the ultrasonic device to enter the lesser sac and facilitate the ligation of the short gastric vessels. I started at a mid-point along the greater curvature and using the Thunderbeat, all short gastric vessels were divided all the way to the angle of His until the left stephania was completely dissected at its entirety. I then divided the gastro-colic ligament distally to a distance of about 3-4 cm proximal to the esophagus. There were extensive congenital adhesions between the pancreas and posterior gastric wall. Those were lysed completely with the ultrasonic device. Adhesiolysis took approximately 45 min to complete.? The stomach was then divided transversely with one Endo KATHLEEN-45 purple and 4 KATHLEEN- 6s0 articulating orange loads using the AEON stapler and loads. Every effort was made that the gastric sleeve had a tubular shape and an even caliber throughout. Once the sleeve resection was completed, the staple line of the gastric sleeve was reinforced with Hemoclips. The resected stomach was retrieved without difficulty from the Luis Armando port. A gastropexy was then performed in order to prevent postoperative GERD and partial gastric volvulus. Several interrupted 2.0 Surgidac sutures were placed between the sleeve's staple line and the previously divided greater omentum and gastro-colic ligament using the Endo-Stitch device. ?An upper endoscopy was performed. There was no narrowing at the GE junction. The scope was easily advanced all the way to the pylorus which was clearly visualized. There was no narrowing anywhere and the sleeve's caliber was even throughout. The sleeve's staple line was inspected and there was no evidence of ischemia, bleeding or dehiscence. At that point the gastroscope was withdrawn from the patient?s mouth while we were decompressing the bowel and the stomach from any remaining air. I looked into the lesser sac to see how the sleeve was situating and it was situating well. There was no bleeding from the staple line, spleen, or short gastric vessels. The Mediflex retractor was removed, and the undersurface of the liver was inspected and there was no bleeding. The patient was placed in supine position. I closed the fascial defect of the 12 mm port site with a figure of eight #1 Polysorb suture. Then 100 cc 0.25 % Marcaine plain with 10 mg of Dexamethasone were used to infiltrate the fascial closure as well as all skin incisions. At this point, the abdomen was deflated, all ports were removed under direct vision, and no bleeding was noted from any of the port sites. The skin incisions were irrigated with saline and were closed with 4-0 absorbable monofilament sutures. Steri-Strips and OpSites were used to cover all incisions. The patient was extubated and was transferred in stable condition to the recovery room for further care. I was present and performed all garza parts of the procedure. Ms. Kunz was the assistant hvac mechanic. There were no residents to assist with this case. Ian Casanova MD, PhD, FACS Surgeon: Cosmo Casanova MD Anesthesia: GETA, local and other (TAP block) Was an Agricultural Mechanic used for this Procedure?: Yes Agricultural Mechanic: Elinor Kunz Estimated blood loss (mL): 10 IV fluids (mL): 2,600 Urine output (mL): 0 (No Lopez to record) Pathology: other (Stomach) Condition: stable Disposition: PACU
[2021-03-30] MEDS: Famotidine/PF 20 MG/2 ML VIAL IVPUSH (19:45)
[2021-03-30] MEDS: Metoclopramide HCl 10 MG/2 ML VIAL IVPUSH (21:23)
[2021-03-30] MEDS: 0.9 % Sodium Chloride Flush 3 ML SYRINGE IVFLUSH (21:29)
[2021-03-30] MEDS: HYDROmorphone HCl 0.5 MG/0.5 ML SYRINGE 0.25 MG IVPUSH (21:52)
[2021-03-31] MEDS: ondansetron HCL 4 MG/2 ML VIAL IVPUSH (01:23)
[2021-03-31] MEDS: HYDROmorphone HCl 0.5 MG/0.5 ML SYRINGE 0.25 MG IVPUSH ×2 (01:25→06:00)
[2021-03-31 03:10] VITALS: BP 119/68; PULSE 84; RESP 18; TEMP 36.8; O2SAT 96
[2021-03-31 05:47] LABS: MANUAL DIFF FLAG NO
[2021-03-31 06:05] LABS: Basophils Percent Auto 0.1 % (0-2); Eosinophils Percent Auto 0.1 % (0-4); Hematocrit 36.6 % (37.0-47.0); Hemoglobin 12.1 g/dl (12.0-16.0); Imm Gran Abs Auto 0.04 X10*3/uL (0.00-0.03); Imm Gran Pct Auto 0.4 % (0.0-0.4); Lymphocytes Absolute Auto 1.3 X10*3/uL (1.2-4.9); Lymphocytes Percent Auto 12.4 % (20-40); Mean Corpuscular HGB Conc 33.1 g/dl (31.0-35.0); Mean Corpuscular Hemoglobin 29.3 pg (27.0-33.0); Mean Corpuscular Volume 88.6 fL (80.0-98.0); Mean Platelet Volume 10.5 fL (9.4-12.3); Monocytes Absolute Auto 0.7 X10*3/uL (0.1-1.2); Monocytes Percent Auto 6.9 % (2-11); Neutrophils Absolute Auto 8.5 x10*3/uL (2.0-8.3); Neutrophils Percent Auto 80.1 % (45-73); Platelet Count 283 X10*3/uL (160-400); Red Blood Count 4.13 X10*6/uL (4.20-5.50); Red Cell Distribution Width 12.4 % (11.0-16.0); White Blood Count 10.7 X10*3/uL (4.8-10.8)
[2021-03-31 06:30] LABS: Anion Gap 11 (12-20); Blood Urea Nitrogen 8 mg/dL (9-16); Carbon Dioxide 25 mmol/L (22-29); Chloride 103 mmol/L (96-108); Creatinine Clr Calc Pharmacy 167.3; Estimated Glomerular Filt Rate > 60; Glucose Random 99 mg/dL (60-115); Potassium 4.5 mmol/L (3.3-5.1); Sodium 134 mmol/L (135-145)
[2021-03-31] MEDS: Lactated Ringers 1,000 ML 100 ML IVCONT (07:29)
[2021-03-31 07:59] VITALS: BP 135/81; PULSE 72; RESP 18; TEMP 36.8; O2SAT 98
--- NOTE | 2021-03-31 08:20 | P.PNGS_ITS ---
Subjective Subjective Date of Service: 03/31/21 Interval history: Patient states nausea has resolved this am and has been able to tolerate phase 1 diet. She has been ambualting and voiding without difficulty. Minimal pain in epigastric region and some belching noted. no emesis. Physical Exam Vital Signs: Vital Signs: Last Vital Signs Temp 98.3 F 03/31/21 07:59 Pulse 72 03/31/21 07:59 Resp 18 03/31/21 07:59 BP 135/81 03/31/21 07:59 Pulse Ox 98 03/31/21 07:59 BMI result Body Mass Index 38.0 Const: General: cooperative, healthy appearing and no acute distress Orientation/consciousness: patient oriented x3 Limitations: no limitations Resp: Other: ICS to full 2500cc GI: Inspection: Yes incision (all surgical dressing c/d/i) Palpation (GI): Soft to palpation, nontender, no guarding, not rigid, no hernias and no masses Neuro: General: patient oriented x3 Extrem: General: Yes no pedal edema and Yes no calf tenderness Objective Data Active Medications Albuterol Sulfate (Albuterol Sulfate 90 Mcg 8 Gm Inhaler) 1 puff INHALE QID PRN PRN Reason: Wheezing Famotidine (Famotidine/Pf 20 Mg/2 Ml Vial) 20 mg IVPUSH BID [facility] Last Admin: 03/30/21 19:45 Dose: 20 mg Documented by: GREGORIO Hydromorphone HCl (Hydromorphone Hcl 0.5 Mg/0.5 Ml Syringe) 0.25 mg IVPUSH Q4H PRN; Protocol PRN Reason: Pain, Moderate (Pain Scale 4-6 Last Admin: 03/31/21 06:00 Dose: 0.25 mg Documented by: GREGORIO Lactated Ringer's (Lr) 1,000 mls @ 100 mls/hr IVCONT .Q10H [facility] Last Infusion: 03/31/21 08:19 Dose: 0 mls/hr Documented by: TRACIE Acetaminophen (Ofirmev) 1,000 mg in 100 mls @ 16.7 mls/hr IV .Q6H [facility] Last Admin: 03/31/21 03:08 Dose: 16.7 mls/hr Documented by: GREGORIO Metoclopramide HCl (Metoclopramide Hcl 10 Mg/2 Ml Vial) 10 mg IVPUSH Q6H PRN PRN Reason: Nausea Last Admin: 03/30/21 21:23 Dose: 10 mg Documented by: GREGORIO Ondansetron HCl (Ondansetron Hcl 4 Mg/2 Ml Vial) 4 mg IVPUSH Q8H [facility] Last Admin: 03/31/21 01:23 Dose: 4 mg Documented by: GREGORIO Sodium Chloride (0.9 % Sodium Chloride Flush 3 Ml Syringe) 3 ml IVFLUSH QSHIFT [facility] Last Admin: 03/31/21 08:18 Dose: Not Given Documented by: TRACIE Non-Admin Reason: IV Running Labs CBC & Chem 7: 03/31/21 05:29 03/31/21 05:29 Labs: Laboratory Results - last 24 hr 03/30/21 03/31/21 03/31/21 11:59 05:29 05:29 MCV 88.6 MCH 29.3 MCHC 33.1 RDW 12.4 Plt Count 283 MPV 10.5 Immature Gran % (Auto) 0.4 Neut % (Auto) 80.1 H Lymph % (Auto) 12.4 L Lake % (Auto) 6.9 Eos % (Auto) 0.1 Baso % (Auto) 0.1 Lymph # (Auto) 1.3 Lake # (Auto) 0.7 Eos # (Auto) 0.0 Baso # (Auto) 0.0 Abs Immat Gran (auto) 0.04 H Absolute Neuts (auto) 8.5 H Absolute Nucleated RBC 0.000 Nucleated RBC % (auto) 0.0 Anion Gap 10 L 11 L Estim Creat Clear Calc 162.5 167.3 Estimated GFR > 60 > 60 Random Glucose 122 H 99 Calcium 8.9 9.0 Procedures Date of Service Date of Service: 03/31/21 Progress Note: A&P Assessment and plan (1) S/P laparoscopic sleeve gastrectomy: Status: Acute Assessment and Plan: POD # 1 s/p lap sleeve gastrectomy doing very well, tolerating phase 1 diet and ready to go home this am. Patient has recevied post op instructions from Dr Casanova and will continue phase 1 diet today. All questions answered, patient has all equipment and meds at home and feels ready for discharge. (2) BMI 40.0-44.9, adult: Status: Acute Fall Risk Details Current Medications: Current Medications Albuterol Sulfate (Albuterol Sulfate 90 Mcg 8 Gm Inhaler) 1 puff INHALE QID PRN PRN Reason: Wheezing Famotidine (Famotidine/Pf 20 Mg/2 Ml Vial) 20 mg IVPUSH BID [facility] Last Admin: 03/30/21 19:45 Dose: 20 mg Documented by: Hydromorphone HCl (Hydromorphone Hcl 0.5 Mg/0.5 Ml Syringe) 0.25 mg IVPUSH Q4H PRN; Protocol PRN Reason: Pain, Moderate (Pain Scale 4-6 Last Admin: 03/31/21 06:00 Dose: 0.25 mg Documented by: Lactated Ringer's (Lr) 1,000 mls @ 100 mls/hr IVCONT .Q10H [facility] Last Infusion: 03/31/21 08:19 Dose: Infused Documented by: Acetaminophen (Ofirmev) 1,000 mg in 100 mls @ 16.7 mls/hr IV .Q6H [facility] Last Admin: 03/31/21 03:08 Dose: 16.7 mls/hr Documented by: Metoclopramide HCl (Metoclopramide Hcl 10 Mg/2 Ml Vial) 10 mg IVPUSH Q6H PRN PRN Reason: Nausea Last Admin: 03/30/21 21:23 Dose: 10 mg Documented by: Ondansetron HCl (Ondansetron Hcl 4 Mg/2 Ml Vial) 4 mg IVPUSH Q8H [facility] Last Admin: 03/31/21 01:23 Dose: 4 mg Documented by: Sodium Chloride (0.9 % Sodium Chloride Flush 3 Ml Syringe) 3 ml IVFLUSH QSHIFT [facility] Last Admin: 03/31/21 08:18 Dose: Not Given Documented by: Time Spent With Patient Time: Total time spent is greater than 50% in coordination of care (as documented) at patient's floor/unit and/or counseling patient: Time with patient: 15 - 24 minutes Quality Stroke Does the patient have a stroke diagnosis?: No VTE Prior VTE?: No VTE Risk Level:: Surgical - low VTE Device Contraindication: N/A - Device Ordered VTE Drug Contraindication: Treatment Not Indicated
--- NOTE | 2021-03-31 11:54 | MHC.CM.PN ---
PATIENT IS INDEPENDENT DC HOME WITH NO NEED FOR SERVICES. ASSESSMENT NOT COMPLETED SECONDARY TO ACUITY OF ALL UNITS AND EMERGENT NEED FOR APPROPRIATE DISCHARGES
--- NOTE | 2021-04-03 12:26 | PC.NURSE ---
03/30 1136 Zee Ash: 1052 KD Garcia again notified post op orders unable to be viewed in [facility]. Emerson Ann, Director OR, also made aware no post op orders. 1107 KD Garcia again made aware of no orders present on this patient for post op. Additional HEEL FINISHER looking for orders. Elinor indicated need to contact IT as she has placed orders. Lo
== END 2021-03-31 12:00 | disposition home or self-care (01) | DRG 403 ==
LOC: HO.SSSA 10:03 → HO.S3 16:14
PROVIDERS: Anesthesiology; Nurse Practitioner; Physician Assistant; Physician Assistant Surgical; Surgery; Admitting Provider Surgery; PCP Internal Medicine; Visit Provider Surgery
PROC: 0DB64Z3 Excision of Stomach, Percutaneous Endoscopic Approach, Vertical (ICD-10-PCS; CPT 43845; principal; 2021-03-30 07:30)
DX: E66.01 Morbid (severe) obesity due to excess calories (principal); K74.00 Hepatic fibrosis, unspecified; K76.0 Fatty (change of) liver, not elsewhere classified; E28.2 Polycystic ovarian syndrome; K66.0 Peritoneal adhesions (postprocedural) (postinfection); K21.9 Gastro-esophageal reflux disease without esophagitis; F17.210 Nicotine dependence, cigarettes, uncomplicated; Z71.6 Tobacco abuse counseling; Z68.38 Body mass index [BMI] 38.0-38.9, adult; Z88.0 Allergy status to penicillin; Z79.899 Other long term (current) drug therapy
CPT/HCPCS: 36415; 80048; 80053; 80061; 81025; 82306; 83036; 83525; 84425; 84443; 85014; 85018; 85025; 85610; 85730; 86140; 86850; 86900; 86901; 87635; 88307; 88342; A4649; J0131; J1100; J1170; J1200; J1956; J2250; J2405; J2550; J2765; J3010

== ENCOUNTER → 2021-04-05 08:34 | Outpatient (BNVA) | payer BC, SELFPAY | PROVIDERS: PCP Internal Medicine; Visit Provider Surgery ==

== ENCOUNTER → 2021-05-08 08:11 | Outpatient (BNVA) | payer BC, SELFPAY | PROVIDERS: PCP Internal Medicine; Visit Provider Physician Assistant ==

== ENCOUNTER → 2021-06-26 11:27 | Outpatient (BNVA) | payer BC, SELFPAY | PROVIDERS: PCP Internal Medicine; Visit Provider Physician Assistant | DX: Z13.89 Encounter for screening for other disorder (principal) ==

== ENCOUNTER 2021-07-10 02:54 | Outpatient (REF) | payer BC, SELFPAY ==
[2021-07-10 03:26] LABS: COVID-19 Test Negative (Negative)
== END 2021-07-10 02:55 | disposition home or self-care (01) ==
LOC: HO.LAB 02:54
PROVIDERS: Visit Provider Internal Medicine
DX: Z20.822 Contact with and (suspected) exposure to COVID-19 (principal)
CPT/HCPCS: 87635

== ENCOUNTER 2021-08-06 22:52 | Outpatient (REF) | payer BC, SELFPAY ==
[2021-08-06 23:25] LABS: COVID-19 Test Negative (Negative)
== END 2021-08-06 22:53 | disposition home or self-care (01) ==
LOC: HO.LAB 22:52
PROVIDERS: Internal Medicine; Visit Provider Internal Medicine
DX: Z20.822 Contact with and (suspected) exposure to COVID-19 (principal)
CPT/HCPCS: 87635